=== PATIENT | female | born 1965 | race Caucasian/White ===

== ENCOUNTER 2016-11-26 05:38 | Outpatient (CLI) | payer BC ==
[~2016-11-26] VITALS: Ht 165.1 cm; Wt 60.8 kg
[2016-11-26] MEDS ORDERED: FLUO20CA42 PO ×2 (16:09)
[2016-11-26] MEDS ORDERED: LYSI500T3 PO ×2 (16:09)
[2016-11-26] MEDS ORDERED: LAMO100T69 PO ×2 (16:09)
[2016-11-26] MEDS ORDERED: CYCL10TA9 PO ×2 (16:09)
[2016-11-26] MEDS ORDERED: VITA1TAB26 PO ×2 (16:09)
[2016-11-26] MEDS ORDERED: ZOLP5TAB PO ×2 (16:09)
[2016-11-26] MEDS ORDERED: ALPR0.5T PO ×2 (16:09)
[2016-11-26] MEDS ORDERED: DEXT7.5T5 PO ×2 (16:09)
[2016-11-26] MEDS ORDERED: MELO7.5T46 PO ×2 (16:09)
[2016-11-26] MEDS ORDERED: QUET100T PO ×2 (16:09)
== END 2016-11-26 16:10 ==
LOC: PREOP 05:38
PROVIDERS: ATTEND Internal Medicine
DX: Z01.818 Encounter for other preprocedural examination (principal); Z12.11 Encounter for screening for malignant neoplasm of colon

== ENCOUNTER 2016-11-28 08:35 | Day surgery (SDC) | payer BC ==
--- NOTE | 2016-11-26 12:16 | HISTORY AND PHYSICAL ---
DATE OF ADMISSION: 11/28/2016 REFERRING PHYSICIAN: Dr. Vizcaino Ms. Dixon is a 51-year-old white female referred for her first screening colonoscopy. She does report a long-standing history of constipation. She typically will only go after taking 4 senna tabs, that she does twice weekly. Her stool is initially hard, but without pain. She denies any problems with rectal bleeding or melena. She does have a sensation of bloating prior bowel evacuation with relief after. PAST SURGICAL HISTORY: Significant for: 1. Total abdominal hysterectomy. 2. section x2. 3. Lumbar diskectomy with fusion of 7. 4. History of with lumpectomy with radiation therapy and chemotherapy for breast cancer in 2006. There has been no evidence for recurrence. FAMILY HISTORY: Mother is living at the age of 76 and has a history of diverticular disease. Father of ALS in the early 60s. She is not aware of any family history for colon cancer. SOCIAL HISTORY: She has rare alcohol intake and no past smoking history. 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 MEDICATIONS: Include: 1. Vaginal estrogen ring 2. L-thyroxin 3. Adderall 4. Lamictal 5. Prozac 6. Seroquel for bipolar disorder. 7. She will take 7.5 mg Mobic tablet at lunch 8. cyclobenzaprine 10 mg at h.s. 9. Occasionally she will take Ambien for sleep at night. PHYSICAL EXAMINATION: Reveals normal weight white female, appears to be in no acute distress. VITAL SIGNS: Blood pressure 151/84, heart rate 72 and regular. HEENT EXAMINATION: Unremarkable. NECK: Revealed no JVD, adenopathy or bruits. She is a Mallampati class I pharyngeal configuration. Pharynx reveals no evidence for erythema. CHEST: Clear. CV: Revealed a regular rate and rhythm without murmur, S3 or S4. ABDOMEN: Soft, supple and nontender without mass, organomegaly or tenderness. Bowel sounds are positive. No bruits are noted. EXTREMITIES: Reveal no cyanosis, clubbing, or edema. A/P: The patient was set-up for her first routine screening colonoscopy on 11/28. Prep instructions with a sodium phosphate tablet prep were given. The patient reports no known history of renal disease. She is to abstain from meloxicam for 48 hours prior and continue to abstain from aspirin and other nonsteroidal therapy. The patient does have a history of chronic constipation. We will discuss further after colonoscopy. Job ID: [id number] Dictated Date: 11/26/2016 08:50:13 Pipeline Executive Date: 11/26/2016 11:53:35/cas
[~2016-11-28 08:35] MED LIST: ALPR0.5T PO; CYCL10TA9 PO; DEXT7.5T5 PO; FLUO20CA42 PO; LAMO100T69 PO; LYSI500T3 PO; MELO7.5T46 PO; QUET100T PO; VITA1TAB26 PO; ZOLP5TAB PO
[2016-11-28] MEDS ORDERED: 1/2 NS IV SOLUTION 1,000 ML IV STA (08:47)
[2016-11-28 08:50] VITALS: BP 127/71
--- NOTE | 2016-11-28 09:18 | Pre-Op Note & Conscious Sedat ---
Pre-Operative Progress Note H&P Reviewed The H&P was reviewed, patient examined and no changes noted. Date H&P Reviewed: Nov 28, 2016 Time H&P Reviewed: 09:17 Conscious Sedation Pre-Proced ASA Class: 2 Airway Mallampati Classification: ([place] appropriate class) I. II. III, IV Lungs Heart ASA score ASA 1: a normal healthy patient ASA 2: a patient with a mild systemic disease (mid diabetes, controlled hypertension, obesity ASA 3: a patient with a severe systemic disease that limits activity (angina , COPD, prior Myocardial infarction) ASA 4: a patient with an incapacitating disease that is a constant threat to life (CHF, renal failure) ASA 5: a moribund patient not expected to survive 24 hrs. (ruptured aneurysm) ASA 6: a declared brain patient whose organs are being harvested. For emergent operations, add the letter E after the classification Grade 1 Sedation Plan: Analgesia, Amnesia, Plan communicated to team members, Discussed options with patient/fam, Discussed risks with patient/fam Note The patient is an appropriate candidate to undergo the planned procedure, sedation, and anesthesia. The patient immediately re-assessed prior to indication. TONEY WALLS MD Nov 28, 2016 09:18
[2016-11-28] MEDS ORDERED: MIDAZOLAM 2 MG/2 ML (VERSED) VIAL ONE ×5 (09:32→10:39)
[2016-11-28] MEDS ORDERED: fentaNYL INJECTION 100 MCG/2 ML AMP ONE ×3 (09:32→10:18)
[2016-11-28] MEDS ORDERED: LIDOCAINE JELLY 2% (XYLOCAINE) 5 ML TUBE ONE (09:32)
[2016-11-28] MEDS: fentaNYL INJECTION 100 MCG/2 ML AMP IVP PRN ×5 (09:50→10:24)
[2016-11-28] MEDS: MIDAZOLAM 2 MG/2 ML (VERSED) VIAL IVP PRN ×5 (09:51→10:44)
[2016-11-28] MEDS ORDERED: ONDANSETRON 4 MG/2 ML (SDV) Z0FRAN ONE (10:18)
[2016-11-28] MEDS ORDERED: ONDANSETRON 4 MG/2 ML (SDV) Z0FRAN IVP ONE (10:30)
[2016-11-28] MEDS ORDERED: LIDOCAINE JELLY 2% (XYLOCAINE) 5 ML TUBE TOP ONE (10:30)
[2016-11-28 11:10] VITALS: BP 140/70
[2016-11-28] MEDS ORDERED: diphenhydrAMINE 50 MG/ML INJ (BENADRYL) IVP ONE (11:30)
[2016-11-28 11:40] VITALS: BP 135/73
[2016-11-28 12:10] VITALS: BP 135/73
--- NOTE | 2016-11-29 23:55 | PROCEDURE REPORT ---
PROCEDURE PHYSICIAN: TONEY WALLS DATE OF PROCEDURE: COLONOSCOPY SUMMARY: INDICATION FOR THE PROCEDURE: Screening colonoscopy. PRIMARY CARE PHYSICIAN: Dr. Shanta Vizcaino PROCEDURE: The patient was the left lateral decubitus position. Prior to undergoing colonoscopy, digital rectal evaluation was performed. Anal sphincter tone was normal. Perianal reflex was intact. The colonoscope was then inserted into the rectum and under direct visualization, advanced to the cecum. The cecum was identified by identification of the ileocecal valve and the cecal strap. Photographic documentation was obtained. Careful inspection was made as colonoscope was withdrawn. The patient did have an irritable bowel type response to air insufflation and colonic manipulation requiring more than average amount of Versed and fentanyl for the procedure. FINDINGS: There was no evidence for internal or external hemorrhoids. The rectum, sigmoid colon, descending colon, transverse colon, ascending colon and cecum were unremarkable with no evidence for neoplasia on today's study. There was no evidence for diverticular disease and no evidence for colonic dilatation was noted with normal appearing peristalsis. There was a lot of colonic resistance compatible with sigmoid spasm during the procedure. ASSESSMENT: Normal colonoscopy to the cecum with an irritable bowel type response to air insufflation and colonic manipulation. We discussed the fact that her exam and history were highly suggestive of constipation predominant irritable bowel syndrome. In discussion with her, she was advised to try Linzess again 290 mg before the first meal of the day. She had been taking it later in the day which may significantly impact its effectiveness. She is advised to give it a month. She was also advised to continue regular fiber use and MiraLax and Senna as needed. I thank you for the referral of this pleasant lady. Sincerely, Job ID: [id number] Dictated Date: 11/28/2016 11:53:11 Elementary Secretary Date: 11/29/2016 23:46:13 / cas SIM
--- OUTSIDE RECORDS SUMMARY | 2016-12-02 06:45 | XMS REPORT | Continuity of Care Document ---
Author Author [facility] Organization [facility] Address Unknown Phone Unavailable Allergies Active Description Code Type Severity Reaction Onset Reported/Identified Relationship to Patient Clinical Status Yes erythromycin base [id number] Drug Allergy Unknown itchy throat 11/26/2016 Yes meperidine [id number] Drug Allergy Unknown itch all over 11/26/2016 Yes tetanus and diphtheria toxoids [id number] Drug Allergy Unknown turned bright r 11/26/2016 Medications Problems Date Dx Coded Attending Type Code Diagnosis Diagnosed By 12/24/2015 Ot 174.9 MALIGN NEOPL BREAST NOS 12/24/2015 Ot 724.1 PAIN IN THORACIC SPINE 12/24/2015 Ot 719.41 JOINT PAIN-SHLDER 12/24/2015 Ot V10.3 HX OF BREAST MALIGNANCY 12/24/2015 GAIL MIRANDA DO S Ot 719.46 JOINT PAIN-L/LEG 12/24/2015 GAIL MIRANDA DO S Ot V10.3 HX OF BREAST MALIGNANCY 11/21/2016 Ot 719.41 JOINT PAIN-SHLDER 11/21/2016 Ot V10.3 HX OF BREAST MALIGNANCY 11/21/2016 GAIL MIRANDA DO S Ot 719.46 JOINT PAIN-L/LEG 11/21/2016 GAIL MIRANDA DO S Ot V10.3 HX OF BREAST MALIGNANCY 11/24/2016 Ot 719.41 JOINT PAIN-SHLDER 11/24/2016 Ot V10.3 HX OF BREAST MALIGNANCY 11/24/2016 GAIL MIRANDA DO S Ot 719.46 JOINT PAIN-L/LEG 11/24/2016 GAIL MIRANDA DO S Ot V10.3 HX OF BREAST MALIGNANCY 11/24/2016 Ot 719.41 JOINT PAIN-SHLDER 11/24/2016 Ot V10.3 HX OF BREAST MALIGNANCY 11/24/2016 GAIL MIRANDA DO S Ot 719.46 JOINT PAIN-L/LEG 11/24/2016 MEGAN MIRANDA DOQUELINE S Ot V10.3 HX OF BREAST MALIGNANCY 11/26/2016 TONEY WALLS MD Ot Z01.818 ENCOUNTER FOR OTHER PREPROCEDURAL EXAMIN 11/26/2016 TONEY WALLS MD Ot Z12.11 ENCOUNTER FOR SCREENING FOR MALIGNANT NE 11/28/2016 Ot 719.41 JOINT PAIN-SHLDER 11/28/2016 Ot V10.3 HX OF BREAST MALIGNANCY 11/28/2016 ORENDER DO, GAIL S Ot 719.46 JOINT PAIN-L/LEG 11/28/2016 ORENDER DO, GAIL S Ot V10.3 HX OF BREAST MALIGNANCY 11/28/2016 Ot 719.41 JOINT PAIN-SHLDER 11/28/2016 Ot V10.3 HX OF BREAST MALIGNANCY 11/28/2016 ORENDER DO, GAIL S Ot 719.46 JOINT PAIN-L/LEG 11/28/2016 ORENDER DO, GAIL S Ot V10.3 HX OF BREAST MALIGNANCY 11/28/2016 Ot 719.41 JOINT PAIN-SHLDER 11/28/2016 Ot V10.3 HX OF BREAST MALIGNANCY 11/28/2016 ORENDER DO, GAIL S Ot 719.46 JOINT PAIN-L/LEG 11/28/2016 OREND DO, GAIL S Ot V10.3 HX OF BREAST MALIGNANCY Procedures Results Encounters ACCT No. Visit Date/Time Discharge Status Pt. Type Provider Facility Loc./Unit Complaint [id number] 11/28/2016 08:35:00 2016 12:10:00 DIS Outpatient TONEY WALLS MD [facility] ENDO SCREENING [id number] 11/26/2016 05:38:00 2016 16:10:00 DIS Outpatient TONEY WALLS MD [facility] PREOP SCREENING COLO [id number] 08/17/2013 16:11:00 2013 23:59:59 CLS Outpatient GAIL MIRANDA DO [facility] RAD LT HIP PAIN [id number] 07/15/2011 10:43:00 Document Registration [id number] 04/26/2011 11:45:00 Document Registration
== END 2016-11-28 12:10 | disposition home or self-care (01) ==
LOC: ENDO 08:35
PROVIDERS: ATTEND Internal Medicine
DX: Z12.11 Encounter for screening for malignant neoplasm of colon (principal); K59.09 Other constipation

== ENCOUNTER → 2016-12-01 | Outpatient (CLI) | payer BC ==
--- NOTE | 2016-12-01 18:59 | Diagnostic Imaging Report ---
INDICATION: A 51-year-old female reports swollen right hand, possible foreign body. COMPARISON: None FINDINGS: Three views of the right hand show no evidence of new or healing fractures, bony destruction or remodeling. There is prominence of the soft tissues but no abnormal radiopaque foreign body seen. IMPRESSION: No fracture, subluxation or abnormal radiopaque foreign body seen. Dictated by: Dictated on workstation # [id number]
--- NOTE | 2016-12-01 19:32 | Diagnostic Imaging Report ---
INDICATION: 51-year-old female with swollen right hand, possible foreign body from a retained IV catheter. COMPARISON: Plain radiograph, right hand. FINDINGS / IMPRESSION: Limited assessment of the soft tissues of the right hand show a 3.2 segment of noncompressible vein over the second metacarpal on the posterior aspect of the right hand. Overall assessment and imaging is difficult. This may be a thrombosed vein, however, a retained catheter tubing is not excluded. It should be noted, the catheter tubing should be radiopaque and be visible on the plain radiograph which it is not. Therefore, this is most likely a thrombosed vein. Dictated by: Dictated on workstation # [id number]
== END ==
LOC: RAD 17:26
PROVIDERS: ATTEND Internal Medicine
DX: R93.8 Abnormal findings on diagnostic imaging of other specified body structures (principal)
CPT/HCPCS: 73130; 76999

== ENCOUNTER → 2017-05-08 | Outpatient (CLI) | payer BC ==
--- NOTE | 2017-05-08 13:07 | Diagnostic Imaging Report ---
INDICATION: Followup pneumonia. No previous chest for comparison. FINDINGS: PA and lateral chest shows the lungs to be well aerated. There are no infiltrates or masses. The heart is not enlarged. There is no pulmonary edema. No hilar adenopathy. No pneumothorax or pleural effusions. Bilateral breast implants are noted. IMPRESSION: Normal PA and lateral chest. Dictated by: Dictated on workstation # [id number]
== END ==
LOC: RAD 12:21
PROVIDERS: ATTEND Nurse Practitioner Family
DX: J18.9 Pneumonia, unspecified organism (principal)
CPT/HCPCS: 71020

== ENCOUNTER 2017-06-15 09:00 | Outpatient (CLI) | payer BC ==
[~2017-06-15] VITALS: Ht 165.1 cm; Wt 63.0 kg
[2017-06-15] MEDS ORDERED: PARO25TA15 PO (09:27)
[2017-06-15] MEDS ORDERED: CALC600T12 PO (09:27)
[2017-06-15] MEDS ORDERED: CHRO1TAB7 PO (09:27)
[2017-06-15] MEDS ORDERED: ESTR10TA VG (09:27)
[2017-06-15] MEDS ORDERED: LEVO100T7 PO (09:29)
== END 2017-06-15 09:49 ==
LOC: PREOP 09:00
PROVIDERS: ATTEND Internal Medicine
DX: Z01.818 Encounter for other preprocedural examination (principal); K21.9 Gastro-esophageal reflux disease without esophagitis

== ENCOUNTER 2017-06-19 07:15 | Day surgery (SDC) | payer BC ==
--- NOTE | 2017-06-05 13:20 | HISTORY AND PHYSICAL ---
DATE OF SERVICE: DATE OF ADMISSION: 06/19/2017 REPORT TITLE: EGD HISTORY AND PHYSICAL. HISTORY OF PRESENT ILLNESS: The patient is a 52-year-old white female referred by Dr. Vizcaino for EGD evaluation. Despite the fact the patient has been taking Prevacid 30 mg b.i.d., she still reports reflux symptoms. She describes the symptoms as being epigastric pressure that then radiates up to as high as the thyroid cartilage area. The discomfort is anterior with no posterior radiation. She denies associated nausea, dysphagia, melena or bright red blood per rectum. PAST MEDICAL HISTORY: Significant for irritable bowel syndrome, constipation predominant. She underwent colonoscopy in 11/2016 that revealed no structural abnormality. She did have an irritable bowel type response to air insufflation and colonic manipulation. She reports no medication change. MEDICATIONS ON ADMISSION: Include Levoxyl, unknown dose daily, Adderall 7.5 mg in the morning, Lamictal 100 mg in the morning, Prozac 40 mg daily. She takes 7.5 mg of Mobic with lunch, calcium with vitamin D, and at bedtime 10 mg of cyclobenzaprine and occasionally Xanax or Ambien for insomnia. She also uses Vagifem twice weekly. PAST MEDICAL HISTORY: Also significant for breast cancer. She is premenopausal. She underwent lumpectomy with radiation therapy in 2006. PAST SURGICAL HISTORY: She has had total abdominal hysterectomy in the distant past with section x2 in addition to lumbar diskectomy with fusion. FAMILY HISTORY: Mother is living at the age of 77 with a history of diverticular disease. Father of ALS in his early 60s. She is not aware of any family history for GI tract malignancy. SOCIAL HISTORY: She has no past smoking history with rare alcohol intake. 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 PHYSICAL EXAMINATION: GENERAL: Reveals a normal weight white female, appears to be in no acute distress. VITAL SIGNS: Weight was 141 pounds, up 6 pounds from [facility] weight from 2017, blood pressure 110/60. HEENT: Unremarkable. Sclerae are nonicteric. CHEST: Clear. CARDIOVASCULAR: Reveals regular rate and rhythm without murmur, S3 or S4. ABDOMEN: Soft, supple. Epigastric discomfort to palpation is present without rebound or guarding. No mass or organomegaly is noted. EXTREMITIES: Reveals no cyanosis, clubbing or edema. ASSESSMENT: For further evaluation of reflux sounding symptoms refractory to b.i.d. proton pump inhibitor therapy, the patient is set up for EGD evaluation. She was scheduled for 06/19 at her request. Prep instructions were given, questions were answered and the procedure was set up. I thank you for the referral of this pleasant lady. Job ID: [id number] DocumentID: [id number] Dictated Date: 06/04/2017 16:42:25 Smearer Date: 06/04/2017 17:29:35 Dictated By: TONEY WALLS MD
[~2017-06-19] VITALS: Ht 165.1 cm; Wt 63.0 kg
[~2017-06-19 07:15] MED LIST changes: +CALC600T12 PO; +CHRO1TAB7 PO; +ESTR10TA VG; +LEVO100T7 PO; +PARO25TA15 PO
[2017-06-19] MEDS ORDERED: D5 LR IV SOLUTION 1,000 ML IV STA (07:24)
[2017-06-19] MEDS ORDERED: LIDOCAINE JELLY 2% (XYLOCAINE) 5 ML TUBE MM PRN (07:30)
[2017-06-19] MEDS ORDERED: HURRICAINE EXT TUBE (BENZOCAINE) XX PRN (07:30)
[2017-06-19] MEDS ORDERED: D5 LR IV SOLUTION 1,000 ML IV ONE (07:31)
[2017-06-19] MEDS ORDERED: fentaNYL INJECTION 100 MCG/2 ML AMP ONE (07:42)
[2017-06-19] MEDS ORDERED: LIDOCAINE JELLY 2% (XYLOCAINE) 5 ML TUBE ONE (07:42)
[2017-06-19] MEDS ORDERED: MIDAZOLAM 2 MG/2 ML (VERSED) VIAL ONE ×2 (07:42)
[2017-06-19] MEDS ORDERED: HURRICAINE EXT TUBE (BENZOCAINE) ONE (07:43)
--- NOTE | 2017-06-19 07:57 | Pre-Op Note & Conscious Sedat ---
Pre-Operative Progress Note H&P Reviewed The H&P was reviewed, patient examined and no changes noted. Date H&P Reviewed: Jun 19, 2017 Time H&P Reviewed: 07:57 Conscious Sedation Pre-Proced ASA Class: 2 Airway Mallampati Classification: ([place] appropriate class) I. II. III, IV Lungs Heart ASA score ASA 1: a normal healthy patient ASA 2: a patient with a mild systemic disease (mid diabetes, controlled hypertension, obesity ASA 3: a patient with a severe systemic disease that limits activity (angina , COPD, prior Myocardial infarction) ASA 4: a patient with an incapacitating disease that is a constant threat to life (CHF, renal failure) ASA 5: a moribund patient not expected to survive 24 hrs. (ruptured aneurysm) ASA 6: a declared brain patient whose organs are being harvested. For emergent operations, add the letter E after the classification Grade 2 Sedation Plan: Analgesia, Amnesia, Plan communicated to team members, Discussed options with patient/fam, Discussed risks with patient/fam Note The patient is an appropriate candidate to undergo the planned procedure, sedation, and anesthesia. The patient immediately re-assessed prior to indication. TONEY WALLS MD Jun 19, 2017 07:57
[2017-06-19] MEDS: fentaNYL INJECTION 100 MCG/2 ML AMP IVP PRN ×2 (08:00→08:10)
[2017-06-19] MEDS: MIDAZOLAM 2 MG/2 ML (VERSED) VIAL IVP PRN ×2 (08:02→08:06)
[2017-06-19 08:45] VITALS: BP 109/57
[2017-06-19 09:30] VITALS: BP 99/53
[2017-06-19 09:46] VITALS: BP 123/65
--- NOTE | 2017-06-19 14:52 | OPERATIVE REPORT ---
DATE OF SERVICE: 06/19/2017 INDICATION FOR PROCEDURE: Reflux refractory to b.i.d. proton pump inhibitor therapy. Evaluate for erosive esophagitis, etc. The patient was placed in the left lateral decubitus position. The endoscope was inserted in the oral cavity and under direct visualization, the esophagus was intubated. The endoscope was passed down the esophagus through the stomach and second portion of the duodenum. Careful inspection was made as the endoscope was withdrawn. The patient tolerated the procedure well. FINDINGS: The posterior hypopharynx arytenoid aperture, true and false vocal folds were unremarkable, no evidence for erythema was noted. The esophagus was unremarkable. There was no evidence of rings, webs, strictures, Cormier's change, erosive esophagitis or hiatal hernia. There did not appear to be laxity of the lower esophageal sphincter. There was still some retained food noted in the antrum to a lesser extent to cardia and solid food. It was digested and the patient reports her last meal was quite high and fat at the [facility] [place] 12 hours prior to her procedure. There is a minimal amount of antral erythema present. Biopsy was obtained and submitted for Helicobacter. No evidence for ulceration was noted. No evidence for fundal polyps were present. The pylorus, pyloric channel and the duodenal bulb except for retained food were unremarkable. The second portion of the duodenum was normal as well with normal appearing villous architecture to gross inspection. ASSESSMENT: There is no evidence for erosive esophagitis, hiatal hernia formation or evidence to suggest significant sphincter laxity at the time of the procedure. There is some retained food in the stomach suggesting the possibility of some degree of gastroparesis. Her last meal was quite high in fat; however, reportedly 12 hours prior to the procedure. I suspect that anxiety is contributing significantly to her GI symptomatology. After discussion of risks versus benefits of b.i.d. proton pump inhibitor therapy, it was advised that she try [address] and place of her evening PPI dose first. If she persists in having significant GI distress despite recent switch to Paxil, I would consider gastric emptying study. If it did confirm significant delayed gastric emptying would consider a trial of metoclopramide before meals. We did discuss the importance of smaller amounts more frequently and that she would likely do better on a lower fat diet from the standpoint of gastric emptying. I thank you for the referral of this pleasant lady. Job ID: [id number] DocumentID: [id number] Dictated Date: 06/19/2017 11:16:51 Reproducer Date: 06/19/2017 14:15:17 Dictated By: TONEY WALLS MD MTDD
--- OUTSIDE RECORDS SUMMARY | 2017-06-21 06:12 | XMS REPORT | Continuity of Care Document ---
Author Author [facility] Organization [facility] Address Unknown Phone Unavailable Allergies Active Description Code Type Severity Reaction Onset Reported/Identified Relationship to Patient Clinical Status Yes erythromycin base [id number] Drug Allergy Unknown itchy throat 06/15/2017 Yes meperidine [id number] Drug Allergy Unknown itch all over 06/15/2017 Yes tetanus and diphtheria toxoids [id number] Drug Allergy Unknown turned bright r 06/15/2017 Medications There is no data. Problems Date Dx Coded Attending Type Code Diagnosis Diagnosed By 12/24/2015 Ot 174.9 MALIGN NEOPL BREAST NOS 12/24/2015 Ot 724.1 PAIN IN THORACIC SPINE 12/24/2015 Ot 719.41 JOINT PAIN- SHLDER 12/24/2015 Ot V10.3 HX OF BREAST MALIGNANCY 12/24/2015 GAIL MIRANDA DO S Ot 719.46 JOINT PAIN-L/LEG 12/24/2015 GAIL MIRANDA DO S Ot V10.3 HX OF BREAST MALIGNANCY 11/21/2016 Ot 719.41 JOINT PAIN- SHLDER 11/21/2016 Ot V10.3 HX OF BREAST MALIGNANCY 11/21/2016 GAIL MIRANDA DO S Ot 719.46 JOINT PAIN-L/LEG 11/21/2016 GAIL MIRANDA DO S Ot V10.3 HX OF BREAST MALIGNANCY 11/24/2016 Ot 719.41 JOINT PAIN- SHLDER 11/24/2016 Ot V10.3 HX OF BREAST MALIGNANCY 11/24/2016 GAIL MIRANDA DO S Ot 719.46 JOINT PAIN-L/LEG 11/24/2016 GAIL MIRANDA DO S Ot V10.3 HX OF BREAST MALIGNANCY 11/24/2016 Ot 719.41 JOINT PAIN- SHLDER 11/24/2016 Ot V10.3 HX OF BREAST MALIGNANCY 11/24/2016 GAIL MIRANDA DO S Ot 719.46 JOINT PAIN-L/LEG 11/24/2016 ORENDER DO, GAIL S Ot V10.3 HX OF BREAST MALIGNANCY 11/26/2016 TITI BRIONES, TONEY Andrade Ot Z01.818 ENCOUNTER FOR OTHER PREPROCEDURAL EXAMIN 11/26/2016 TONEY WALLS MD Ot Z12.11 ENCOUNTER FOR SCREENING FOR MALIGNANT NE 11/28/2016 Ot 719.41 JOINT PAIN- SHLDER 11/28/2016 Ot V10.3 HX OF BREAST MALIGNANCY 11/28/2016 ORENDER DO, GAIL S Ot 719.46 JOINT PAIN-L/LEG 11/28/2016 ORENDER DO, GAIL S Ot V10.3 HX OF BREAST MALIGNANCY 11/28/2016 Ot 719.41 JOINT PAIN- SHLDER 11/28/2016 Ot V10.3 HX OF BREAST MALIGNANCY 11/28/2016 ORENDER DO, GAIL S Ot 719.46 JOINT PAIN-L/LEG 11/28/2016 ORENDER DO, GAIL S Ot V10.3 HX OF BREAST MALIGNANCY 11/28/2016 Ot 719.41 JOINT PAIN- SHLDER 11/28/2016 Ot V10.3 HX OF BREAST MALIGNANCY 11/28/2016 ORENDER DO, GAIL S Ot 719.46 JOINT PAIN-L/LEG 11/28/2016 ORENDER DO, GAIL S Ot V10.3 HX OF BREAST MALIGNANCY 11/28/2016 TONEY WALLS MD Ot K59.09 OTHER CONSTIPATION 11/28/2016 TONEY WALLS MD Ot Z12.11 ENCOUNTER FOR SCREENING FOR MALIGNANT NE 12/01/2016 TONEY WALLS MD Ot K59.09 OTHER CONSTIPATION 12/01/2016 TONEY WALLS MD Ot Z12.11 ENCOUNTER FOR SCREENING FOR MALIGNANT NE 12/07/2016 TONEY WALLS MD Ot R93.8 ABNORMAL FINDINGS ON DIAGNOSTIC IMAGING 12/08/2016 TONEY WALLS MD Ot R93.8 ABNORMAL FINDINGS ON DIAGNOSTIC IMAGING 12/08/2016 TONEY WALLS MD Ot R93.8 ABNORMAL FINDINGS ON DIAGNOSTIC IMAGING 12/26/2016 TONEY WALLS MD Ot R93.8 ABNORMAL FINDINGS ON DIAGNOSTIC IMAGING 05/29/2017 MARIELLA DESHPANDE APRN Ot J18.9 PNEUMONIA, UNSPECIFIED ORGANISM 06/15/2017 TONEY WALLS MD Ot K21.9 GASTRO-ESOPHAGEAL REFLUX DISEASE WITHOUT 06/15/2017 TONEY WALLS MD Ot Z01.818 ENCOUNTER FOR OTHER PREPROCEDURAL EXAMIN Procedures There is no data. Results There is no data. Encounters ACCT No. Visit Date/Time Discharge Status Pt. Type Provider Facility Loc./Unit Complaint [id number] 06/19/2017 07:15:00 06/19/2017 09:45:00 DIS Outpatient TONEY WALLS MD [facility] ENDO GERD [id number] 06/15/2017 09:00:00 06/15/2017 09:49:00 DIS Outpatient TONEY WALLS MD [facility] PREOP EGD [id number] 05/08/2017 12:21:00 05/08/2017 23:59:59 CLS Outpatient MARIELLA DESHPANDE APRN [facility] RAD COUGH [id number] 12/01/2016 17:26:00 12/01/2016 23:59:59 CLS Outpatient TONEY WALLS MD [facility] RAD EVALUATE FOR IV TIP IN BACK OF HAND [id number] 11/28/2016 08:35:00 11/28/2016 12:10:00 DIS Outpatient TONEY WALLS MD [facility] ENDO SCREENING [id number] 11/26/2016 05:38:00 11/26/2016 16:10:00 DIS Outpatient TONEY WALLS MD [facility] PREOP SCREENING COLO [id number] 08/17/2013 16:11:00 08/17/2013 23:59:59 CLS Outpatient GAIL MIRANDA DO [facility] RAD LT HIP PAIN [id number] 07/15/2011 10:43:00 Document Registration [id number] 04/26/2011 11:45:00 Document Registration
== END 2017-06-19 09:45 | disposition home or self-care (01) ==
LOC: ENDO 07:15
PROVIDERS: ATTEND Internal Medicine
DX: K21.9 Gastro-esophageal reflux disease without esophagitis (principal); F41.9 Anxiety disorder, unspecified; K58.1 Irritable bowel syndrome with constipation; Z85.3 Personal history of malignant neoplasm of breast; Z79.899 Other long term (current) drug therapy

== ENCOUNTER → 2018-10-04 | Outpatient (CLI) | payer BC ==
--- NOTE | 2018-10-04 13:24 | Diagnostic Imaging Report ---
PROCEDURE: US Renal Bilateral. TECHNIQUE: Multiple real-time grayscale images were obtained over the kidneys in various projections bilaterally. INDICATION: Hematuria. FINDINGS: Right kidney measures 10.1 x 4.4 x 4.9 cm and left kidney measures 9.1 x 3.9 x 6.4 cm. Cortical thickness and echogenicity is normal. There are no calculi. No hydronephrosis is seen. Visualized urinary bladder is unremarkable. IMPRESSION: Unremarkable renal ultrasound. Dictated by: Dictated on workstation # [id number]
== END ==
LOC: RAD 12:06
PROVIDERS: ATTEND Nurse Practitioner Family
DX: R31.9 Hematuria, unspecified (principal); R30.9 Painful micturition, unspecified
CPT/HCPCS: 76770

== ENCOUNTER → 2020-03-22 | Outpatient (CLI) | payer BC ==
[~2020-03-22] MED LIST changes: -CALC600T12 PO; +CLC600T PO
--- NOTE | 2020-03-22 13:50 | Diagnostic Imaging Report ---
Right foot at 12:10. Indication: Foot pain 3 views were obtained. There are no prior studies available for comparison. There is no fracture, dislocation or acute bony abnormality evident. In particular, there is no sign of a fracture involving the 1st ray. The soft tissues are unremarkable for an acute injury as well and there is no sign of a radiopaque foreign body. There is mild degenerative disease involving the phalanges. The Lisfranc joint seems well maintained. Impression: There is no evidence for an acute bony abnormality. Dictated by: Dictated on workstation # [id number]
== END ==
LOC: RAD 11:53
PROVIDERS: ATTEND Nurse Practitioner Family
DX: M79.671 Pain in right foot (principal)
CPT/HCPCS: 73630

== ENCOUNTER → 2020-05-07 | Outpatient (CLI) | payer BC ==
--- NOTE | 2020-05-07 13:01 | Diagnostic Imaging Report ---
PA and lateral chest at 1202 Indication: Cough The heart size is within normal limits and stable when compared to 05/08/2017. In the interval since the prior study. Patchy alveolar/interstitial infiltrates have developed about the right hilum and in the left lung base and left perihilar region. There is also a small area of increased density along the periphery of the right upper lobe. By history the patient has a diagnosis of COVID 19. These findings are most likely due to pneumonia/atelectasis. There is no sign of a pleural effusion. The mediastinum is not widened. The osseous structures are intact. There does appear to be a breast implant in place on the left. This finding seems similar to the prior exam. There is no obvious breast mass present. According to our records the patient has not had a screening mammogram. If the patient has had a screening mammogram within the last year. Then no further imaging will be necessary. Otherwise screening mammogram would be recommended for further study. IMPRESSION: 1. There is bilateral pneumonia/atelectasis. Most likely this is due to the patient's diagnosis of COVID 19. 2. There is no acute cardiopulmonary abnormality evident. 3. There is no obvious breast mass. Additional Considerations as above. Report was faxed to [facility] by angelic at 12:46pm. Dictated by: Dictated on workstation # [id number]
== END ==
LOC: LAB 11:48
PROVIDERS: ATTEND Family Medicine
DX: R05 Cough (principal); Z86.19 Personal history of other infectious and parasitic diseases
CPT/HCPCS: 71046

== ENCOUNTER 2020-11-30 08:00 | Outpatient (RCR) | payer BC ==
[~2020-11-30 08:00] MED LIST changes: +CALC600T91 PO; -CLC600T PO
== END 2020-12-12 | disposition home or self-care (01) ==
PROVIDERS: ATTEND Family Medicine
DX: M47.815 Spondylosis without myelopathy or radiculopathy, thoracolumbar region (principal); M47.812 Spondylosis without myelopathy or radiculopathy, cervical region

== ENCOUNTER → 2021-06-12 | Outpatient (CLI) | payer BC ==
[~2021-06-12] MED LIST changes: +CYCL10TA25 PO; -CYCL10TA9 PO; +RT-ALBUTEROL SULF 2.5 MG/3 ML PRE-MIX VIAL INH ONE
== END ==
LOC: RT 13:00
PROVIDERS: ATTEND Family Medicine
DX: R06.00 Dyspnea, unspecified (principal)
CPT/HCPCS: 94060; 94726; 94729

== ENCOUNTER → 2022-09-10 | Outpatient (CLI) | payer BC ==
[~2022-09-10] MED LIST changes: -PARO25TA15 PO; +PARO25TA21 PO; -RT-ALBUTEROL SULF 2.5 MG/3 ML PRE-MIX VIAL INH ONE
--- NOTE | 2022-09-10 16:22 | Diagnostic Imaging Report ---
INDICATION: Hartman pain as well as bump along the mid shaft of the hartman. TIME OF EXAM: 12:37 p.m. FINDINGS: Two views of the left tibia and fibula were obtained. Alignment at the knee and ankle is normal. The tibia and fibula appear to be intact. No fractures are seen. Soft tissues are unremarkable. No periosteal reaction or stress reaction is identified. IMPRESSION: No acute abnormality is detected. Dictated by: Dictated on workstation # [id number]
== END ==
LOC: RAD 12:07
PROVIDERS: ATTEND Nurse Practitioner Family
DX: M79.662 Pain in left lower leg (principal)
CPT/HCPCS: 73590